=== PATIENT | male | born 1985 | race Caucasian/White ===

== ENCOUNTER 2021-05-19 07:45 | Emergency (ER) | payer BC, OTHER ==
[~2021-05-19] VITALS: Ht 188 cm; Wt 122.7 kg
[~2021-05-19 07:45] MED LIST: NO HOME MEDS
[2021-05-19 08:17] LABS: BASOPHILS # (AUTO) 0.1 X10'3 (0-0.2); BASOPHILS % (AUTO) 1.2 % (0-1); EOSINOPHILS # (AUTO) 0.5 X10'3 (0-0.9); EOSINOPHILS % (AUTO) 5.6 % (0-6); HEMATOCRIT 44.5 % (42.0-52.0); HEMOGLOBIN 15.2 g/dl (14.0-17.9); LYMPHOCYTES # (AUTO) 2.7 X10'3 (1.1-4.8); LYMPHOCYTES % (AUTO) 29.6 % (21-51); MEAN CORPUSCULAR HEMOGLOBIN 29.2 PG (27.0-31.0); MEAN CORPUSCULAR HGB CONC 34.2 g/dL (33.0-36.5); MEAN CORPUSCULAR VOLUME 85.4 FL (78-98); MEAN PLATELET VOLUME 8.3 FL (7.4-10.4); MONOCYTES % (AUTO) 11.4 % (2-12); NEUTROPHILS # (AUTO) 4.7 X10'3 (1.8-7.7); NEUTROPHILS % (AUTO) 52.2 % (42-75); PLATELET COUNT 267 X10'3 (140-440); RED BLOOD COUNT 5.21 X10'6 (4.70-6.10); RED CELL DISTRIBUTION WIDTH 13.1 % (11.5-14.5)
[2021-05-19] MEDS ORDERED: ondansetron/PF 4mg/2ml inj IV ONE (08:20)
[2021-05-19] MEDS ORDERED: morphine 4 MG/ML inj SYRINge IV ONE ×2 (08:20→09:00)
[2021-05-19 08:29] LABS: ALANINE AMINOTRANSFERASE 51 U/L (12-78); ALBUMIN 3.6 G/DL (3.4-5.0); ALBUMIN/GLOBULIN RATIO 0.8 (1.1-1.5); ALKALINE PHOSPHATASE 77 IU/L (46-116); ANION GAP 9 (8-16); ASPARTATE AMINO TRANSFERASE 23 U/L (10-37); BILIRUBIN,TOTAL 0.2 MG/DL (0.1-1.0); BLOOD UREA NITROGEN 10 MG/DL (7-18); BUN/CREATININE RATIO 13.7 (5.4-32.0); CALCIUM 9.1 MG/DL (8.5-10.1); CHLORIDE 107 MMOL/L (99-107); CREATININE 0.73 MG/DL (0.60-1.10); GLUCOSE 130 MG/DL (70-104); LIPASE 116 U/L (73-393); SODIUM 141 MMOL/L (135-145); TOTAL CARBON DIOXIDE 25.5 MMOL/L (24-32); TOTAL PROTEIN 7.9 G/DL (6.4-8.2); eGFR > 90 ML/MIN
[2021-05-19 09:01] VITALS: BP 132/79
[2021-05-19] MEDS ORDERED: ketorolac trometh. 30mg/ml inj. IV ONE (09:35)
[2021-05-19] MEDS ORDERED: HYDROcodone/acetaminophen 5mg/325mg tablet PO ONE (09:40)
[2021-05-19] MEDS ORDERED: ONDA8TAB13 PO ×3 (09:42→09:45)
[2021-05-19] MEDS ORDERED: HYDR-3965 PO ×2 (09:42→09:45)
--- NOTE | 2021-05-19 09:58 | NUR ---
Pt and given and understands d/c instructions. IV d/c'd, catheter was intact. Ambulatory with a steady gait.
== END 2021-05-19 09:58 | disposition home or self-care (01) ==
LOC: ER 07:45
DX: K80.20 Calculus of gallbladder without cholecystitis without obstruction (principal); R10.10 Upper abdominal pain, unspecified; J45.909 Unspecified asthma, uncomplicated; Z90.89 Acquired absence of other organs; Z79.899 Other long term (current) drug therapy
CPT/HCPCS: 36415; 74176; 76700; 80053; 83690; 85025; 96374; 96375; 96376; 99285; J1885; J2270; J2405

== ENCOUNTER 2021-05-21 05:27 | Day surgery (SDC) | payer BC ==
[2021-05-20 13:17] LABS: CLARITY,URINE CLEAR (Clear); COLOR,URINE YELLOW (Yellow); GLUCOSE, URINE NEGATIVE (Neg); KETONES,URINE NEGATIVE (Neg); LEUKOCYTE ESTERASE ,URINE NEGATIVE (Neg); NITRITES, URINE NEGATIVE (Neg); OCCULT BLOOD,URINE NEGATIVE (Neg); PH,URINE 5.5 (4.8-8.0); PROTEIN,URINE NEGATIVE (Neg); UROBILINOGEN,URINE 0.2 E.U/dL (0.2-1.0)
[2021-05-20 13:21] LABS: UA COLLECTION TYPE CLN CATCH MIDSTREAM
[2021-05-21] VITALS (13 sets, daily range): BP systolic 109–126; BP diastolic 68–78
[~2021-05-21] VITALS: Ht 188 cm; Wt 121.8 kg
[~2021-05-21 05:27] MED LIST changes: +ringers solution, lacted 1,000 ML IV SCH
[2021-05-21] MEDS ORDERED: famotidine 20mg tablet PO ONE (05:30)
[2021-05-21] MEDS ORDERED: sevoflurane 250ml liquid IH ONE (06:00)
[2021-05-21] MEDS ORDERED: ceFAZolin 2gm in dextrose, iso 50 ML IV ONE (06:05)
[2021-05-21] MEDS ORDERED: BUPIVAcaine 0.5% inj/PF 30 ML ONE (06:37)
[2021-05-21] MEDS ORDERED: MIDAZolam 1 MG/ML 5ML VIAL ONE (07:09)
[2021-05-21] MEDS ORDERED: FENTANYL CITRATE/PF 50 MCG/1 ML VIAL ONE (07:09)
[2021-05-21] MEDS ORDERED: rocuronium 10mg/ml inj IV ONE (07:13)
[2021-05-21] MEDS ORDERED: neostigmine methylsulfate 1 MG/ML 10ml vial ONE (07:13)
[2021-05-21] MEDS ORDERED: ondansetron/PF 4mg/2ml inj ONE (07:13)
[2021-05-21] MEDS ORDERED: glycopyrrolate 0.2mg/ml inj ONE (07:13)
[2021-05-21] MEDS ORDERED: BUPIVAcaine 0.5% inj/PF 30 ml vial IJ ONE (07:13)
[2021-05-21] MEDS ORDERED: LIDOcaine 2% (20mg/ml) 5ml vial ONE (07:13)
[2021-05-21] MEDS ORDERED: propofol inj 20 ML IV ONE (07:13)
[2021-05-21] MEDS ORDERED: morphine 2 MG/ML inj. syringe IV PRN (07:20)
[2021-05-21] MEDS ORDERED: ringers solution, lacted 1,000 ML IV SCH (07:20)
[2021-05-21] MEDS ORDERED: fentaNYL/PF 50MCG/1 ML 2ML syringe IV PRN ×2 (07:20)
[2021-05-21] MEDS ORDERED: hydrALAZINE 20mg/ml inj. IV PRN (07:20)
[2021-05-21] MEDS ORDERED: labetalol 20mg/4ml (5mg/ml) syringe IV PRN (07:20)
[2021-05-21] MEDS ORDERED: ondansetron/PF 4mg/2ml inj IV PRN (07:20)
[2021-05-21] MEDS ORDERED: morphine 4 MG/ML inj SYRINge IV PRN (07:20)
--- NOTE | 2021-05-21 08:56 | NUR ---
Received from OR via [facility], accompanied by Anesthesiologist DR STEEL and report given by Anesthesiolgist. PT PRESENTS WITH PIV 20G RIGHT HAND, LACY QUILES ABDAMAURY. Addendum: 05/21/21 at 0906 by Bethany Tripp RN, RN Amended: Links added.
[2021-05-21] MEDS ORDERED: HYDROcodone/acetaminophen 10/325mg tab PO ONE (09:35)
--- NOTE | 2021-05-21 10:36 | NUR ---
PT'S IV DC'D WITH [facility]ULA INTACT. I HAVE REVIEWED D/C INSTRUCTIONS WITH PATIENT AND PT'S THEY HAVE VERBALIZED UNDERSTANDING OF INSTRUCTIONS. PATIENT OF [facility] IN A WHEELCHAIR TO PRIVATE VEHICLE. D/C HOME WITH ALL BELONGINGS AND GAVE TRANSPORT Addendum: 05/21/21 at 1102 by Bethany Tripp RN, RN Amended: Links added.
== END 2021-05-21 10:36 | disposition home or self-care (01) ==
LOC: PAS 05:27
PROVIDERS: ATTEND Surgery
DX: K80.00 Calculus of gallbladder with acute cholecystitis without obstruction (principal); J45.909 Unspecified asthma, uncomplicated; E66.01 Morbid (severe) obesity due to excess calories; Z68.34 Body mass index [BMI] 34.0-34.9, adult; Z20.822 Contact with and (suspected) exposure to COVID-19; Z98.890 Other specified postprocedural states; Z72.89 Other problems related to lifestyle; Z79.899 Other long term (current) drug therapy
CPT/HCPCS: 47562; 81003; 82948; 87635; 93005; C9803; J2250; J2270; J2405; J2704; J2710; J3010; J3490; J7030; J7120; S0020; Z7506; Z7508; Z7512; A4215; A4618; A7000